=== PATIENT | female | born 1950 | race Caucasian/White ===

== ENCOUNTER 2023-09-07 06:13 | Inpatient (IN) | payer MEDICARE, BC ==
[2023-08-31 15:27] LABS: BASOPHILS # (AUTO) 0.1 X10'3 (0-0.2); BASOPHILS % (AUTO) 1.8 % (0-1); EOSINOPHILS # (AUTO) 0.1 X10'3 (0-0.9); EOSINOPHILS % (AUTO) 2.1 % (0-6); LYMPHOCYTES # (AUTO) 1.4 X10'3 (1.1-4.8); LYMPHOCYTES % (AUTO) 26.3 % (21-51); MEAN CORPUSCULAR HGB CONC 33.9 g/dL (33.0-36.5); MEAN CORPUSCULAR VOLUME 91.4 FL (78-98); MEAN PLATELET VOLUME 7.3 FL (7.4-10.4); MONOCYTES # (AUTO) 0.4 X10'3 (0-0.9); NEUTROPHILS # (AUTO) 3.2 X10'3 (1.8-7.7); NEUTROPHILS % (AUTO) 61.8 % (42-75); PRE OP HEMATOCRIT 38.3 % (35.0-45.0); PRE OP PLATELET COUNT 206 X10'3 (140-440); PRE OP WHITE BLOOD COUNT 5.2 10'3 (4.8-10.8); RED CELL DISTRIBUTION WIDTH 12.6 % (11.5-14.5)
[2023-08-31 15:39] LABS: ALBUMIN 3.5 G/DL (3.4-5.0); ALKALINE PHOSPHATASE 105 IU/L (46-116); BLOOD UREA NITROGEN 11 MG/DL (7-18); BUN/CREATININE RATIO 13.6 (10.0-20.0); CALCIUM 9.2 MG/DL (8.5-10.1); CHLORIDE 106 MMOL/L (99-107); CREATININE 0.81 MG/DL (0.40-0.90); PRE OP ALT 19 U/L (30-65); PRE OP ANION GAP 6 (8-16); PRE OP AST 20 U/L (10-37); PRE OP BILIRUB, TOTAL 0.9 MG/DL (0.0-1.0); PRE OP POTASSIUM 4.2 MMOL/L (3.4-5.1); PRE OP SODIUM 141 MMOL/L (135-145); TOTAL CARBON DIOXIDE 29.3 MMOL/L (24-32); eGFR 70 ML/MIN
[2023-08-31 15:46] LABS: PRE OP GLUCOSE 89 MG/DL (70-104)
[~2023-09-07] VITALS: Ht 162.6 cm; Wt 68.7 kg
[2023-09-07] VITALS (20 sets, daily range): BP systolic 97–160; BP diastolic 50–76; PULSE 50–77; RESP 13–17; TEMP 97.1–98.6; O2SAT 14–100
[~2023-09-07 06:13] MED LIST: CYAN50007 PO; FERR236T3 PO; GABA300C PO; GLUC1TAB21 PO; IBUP-1984 PO; LORA-269 PO; MAGN200T PO; MARIJUANA INH; MARIJUANA PO; NAPR-1115 PO; NIAC500C12 PO; PSYL0.4C7 PO; RED RICE YEAST PO; TUMERIC PO; [UNRECOGNIZED DRUG - OTHER] PO; [UNRECOGNIZED DRUG - OTHER] TOP; cefazolin 2gm/D5W 100mL 100 ML IV ONE; famotidine 20mg tablet PO ONE; ringers solution, lacted 1,000 ML IV SCH; tranexamic acid 650mg tablet PO ONE; vancomycin/NS 1 GM in NS 250 ML IV ONE
--- NOTE | 2023-09-07 07:30 | NUR ---
PT STATES SHE BATHED AND USED BACTROBAN OINTMENT F OR 5 DAYS PER TOTAL JOINT REPLACEMENT RECOMMENDATIONS. PT DENIES DECREASED SENSATION IN LEFT ARM. RADIAL PULSE PALPABLE, 2+. PT STATES SHE READ THE BOOKLET ON JOINT REPLACEMENT. Addendum: 09/07/23 at 1025 by Heidi Montoya RN Amended: Links added.
[2023-09-07] MEDS ORDERED: ROPIVAcaine 0.5% (5mg/ml) 30ml vial ONE ×2 (09:19→09:26)
[2023-09-07] MEDS ORDERED: dexamethasone sod phosphate 10mg/ml inj ONE (09:23)
[2023-09-07] MEDS ORDERED: desflurane 240ml liquid inh. IH ONE (09:23)
[2023-09-07] MEDS ORDERED: fentaNYL/PF 50MCG/1 ML 2ML syringe ONE (09:25)
[2023-09-07] MEDS ORDERED: midazolam 1 mg/ML 2ml injection ONE (09:26)
[2023-09-07] MEDS ORDERED: ondansetron/PF 4mg/2ml inj ONE (09:28)
[2023-09-07] MEDS ORDERED: LIDOcaine 2% (20mg/ml) 5ml vial ONE (09:28)
[2023-09-07] MEDS ORDERED: propofol inj 20 ML IV ONE (09:28)
[2023-09-07] MEDS ORDERED: acetaminophen 1,000mg/100ml IV 100 ML IV ONE (10:08)
[2023-09-07] MEDS ORDERED: ROPIVAcaine 0.5% (5mg/ml) 30ml vial IJ ONE (10:31)
[2023-09-07] MEDS ORDERED: hydrALAZINE 20mg/ml inj. IV PRN (10:40)
[2023-09-07] MEDS ORDERED: ROPIVAcaine 0.2% (10 MG/5 ML) BOLUS INJECTION INTERSCALE PRN (10:40)
[2023-09-07] MEDS ORDERED: ROPIVAcaine 0.2%/PF PUMP/bolus 545 ML INTERSCALE SCH (10:40)
[2023-09-07] MEDS ORDERED: ringers solution, lacted 1,000 ML IV SCH (10:40)
[2023-09-07] MEDS ORDERED: morphine 2 MG/ML inj. syringe IV PRN (10:40)
[2023-09-07] MEDS ORDERED: fentaNYL/PF 50MCG/1 ML 2ML syringe IV PRN ×2 (10:40)
[2023-09-07] MEDS ORDERED: ondansetron/PF 4mg/2ml inj IV PRN ×2 (10:40→11:50)
[2023-09-07] MEDS ORDERED: enalaprilat dihydrate 2.5mg/2ml vial IV PRN (10:40)
[2023-09-07] MEDS ORDERED: morphine 4 MG/ML inj SYRINge IV PRN (10:40)
--- NOTE | 2023-09-07 11:33 | NUR ---
Received from OR via HOSPITAL BED TO RR 7, accompanied by Anesthesiologist EMELIA and report given by Anesthesiologist. PT PRESENTS ON 6L VIA MASK, VSS. PT DOES NOT C/O PAIN OR NAUSEA. NO S/S OF DISTRESS NOTED. LR RUNNING THRU PIV. LEFT ARM IN SLING AND ICE PACK IS APPLIED. DECREASED SENSATION IN LEFT UPPER EXTREMITY BUT SHE IS ABLE TO MOVE ALL EXTREMITIES. Addendum: 09/07/23 at 1201 by Perlita Smith RN ON-Q READY
[2023-09-07] MEDS ORDERED: HYDROmorphone 1 mg/ml syringe IV PRN (11:50)
[2023-09-07] MEDS ORDERED: bisacodyl 10mg suppository rectal RC PRN (11:50)
[2023-09-07] MEDS ORDERED: acetaminophen 325mg tablet PO PRN (11:50)
[2023-09-07] MEDS ORDERED: magnesium hydroxide 30ml (MOM) UD suspension PO PRN (11:50)
[2023-09-07] MEDS ORDERED: oxyCODONE IR 5mg (immed. release) tablet PO PRN (11:50)
[2023-09-07] MEDS ORDERED: diphenhydrAMINE 25mg capsule PO PRN ×2 (11:50)
[2023-09-07] MEDS ORDERED: naloxone 0.4 mg/ml inj IV PRN (11:50)
[2023-09-07] MEDS ORDERED: HYDROmorphone inj. 0.5 MG/0.5 ML DISP.SYRIN IV PRN (11:50)
[2023-09-07] MEDS ORDERED: MARIJUANA PO PRN (11:50)
[2023-09-07] MEDS ORDERED: naproxen sodium 220mg tablet PO PRN (11:50)
[2023-09-07] MEDS ORDERED: HYDROcodone/acetaminophen 10/325mg tab PO PRN ×2 (11:50)
[2023-09-07] MEDS ORDERED: ibuprofen tablet 400 MG TABLET PO PRN (11:50)
[2023-09-07] MEDS ORDERED: [UNRECOGNIZED DRUG - OTHER] TOP PRN (11:50)
[2023-09-07] MEDS ORDERED: LORazepam 1 MG tablet PO PRN (11:50)
--- NOTE | 2023-09-07 12:50 | NUR ---
Received report from Zaira SANCHEZ, questions answered.
--- NOTE | 2023-09-07 13:03 | NUR ---
PATIENT STABLE FOR TRANSFER PER MD ORDER. REPORT CALLED TO ONCOMING NURSEGOPI. ALL QUESTIONS, COMMENTS, AND CONCERNS WERE ANSWERED AT THIS TIME. PT DENIES PAIN AT THIS TIME. NO S/S OF DISTRESS. LEFT SHOULDER DRESSING INTACT, ICE IN PLACE, SLING IN PLACE. ON-Q TRIGGER IN PATIENTS HAND. ALL PERSONAL BELONGINGS WERE SENT WITH PATIENT. PT IS NEUROLOGICALLY INTACT AND IS ABLE TO MOVE ALL EXTREMITIES, DECREASED SENSATION IN LEFT ARM. PATIENT HOOKED UP TO POST OP VITAL SIGNS, CALL LIGHT WITHIN REACH, BLL, 2 RAILS UP. PRIMARY NURSE IN ROOM DURING TRANSFER.
[2023-09-07] MEDS: acetaminophen 325mg tablet PO SCH ×2 (14:00→21:01)
[2023-09-07] MEDS: ceFAZolin/D5W- 1GM premix 50 ML IV SCH (16:39)
--- NOTE | 2023-09-07 17:59 | NUR ---
I have reviewed and agree with interventions, assessments, and documentation by Myrna Iverson LVN.
[2023-09-07] MEDS ORDERED: vancomycin/NS 1 GM ADD-VANTAGE 250 ML IV SCH (20:00)
--- NOTE | 2023-09-07 20:50 | NUR ---
surgical wound dressing documented sound say L shoulder, pt also has ON-q to L shoulder, still intact pt up to 4.
[2023-09-07] MEDS ORDERED: sennosides 8.6mg tablet PO SCH (21:00)
[2023-09-07] MEDS ORDERED: gabapentin 300mg capsule PO SCH (21:00)
[2023-09-07] MEDS: potassium cl 20mEq in 1/2 NS 1,000 ML IV SCH (21:10)
[2023-09-08] MEDS: ceFAZolin/D5W- 1GM premix 50 ML IV SCH (00:25)
[2023-09-08] MEDS: acetaminophen 325mg tablet PO SCH ×2 (01:59→08:02)
[2023-09-08 02:15] VITALS: BP 118/59; PULSE 67; RESP 16; TEMP 98.4; O2SAT 96
[2023-09-08 06:00] VITALS: BP 145/68; PULSE 64; RESP 14; TEMP 97.8
[2023-09-08 06:29] LABS: BASOPHILS % (AUTO) 0.5 % (0-1); EOSINOPHILS % (AUTO) 0.1 % (0-6); HEMATOCRIT 34.5 % (35.0-45.0); HEMOGLOBIN 11.3 g/dl (12.0-16.0); LYMPHOCYTES % (AUTO) 14.2 % (21-51); MEAN CORPUSCULAR HEMOGLOBIN 30.3 PG (27.0-31.0); MEAN CORPUSCULAR HGB CONC 32.9 g/dL (33.0-36.5); MEAN CORPUSCULAR VOLUME 92.1 FL (78-98); MEAN PLATELET VOLUME 7.9 FL (7.4-10.4); MONOCYTES # (AUTO) 0.9 X10'3 (0-0.9); MONOCYTES % (AUTO) 12.1 % (2-12); NEUTROPHILS # (AUTO) 5.2 X10'3 (1.8-7.7); NEUTROPHILS % (AUTO) 73.1 % (42-75); PLATELET COUNT 147 X10'3 (140-440); RED BLOOD COUNT 3.74 X10'6 (4.20-5.60); WHITE BLOOD COUNT 7.1 X10'3 (4.5-11.0)
[2023-09-08] MEDS: potassium cl 20mEq in 1/2 NS 1,000 ML IV SCH ×2 (06:58→08:56)
[2023-09-08 08:00] VITALS: RESP 14; O2SAT 97
[2023-09-08] MEDS ORDERED: GLUC SU PO SCH (08:00)
[2023-09-08] MEDS ORDERED: FERROUS GLUCONATE 65 MG PO SCH (08:00)
[2023-09-08] MEDS ORDERED: VIT C PO SCH (08:00)
[2023-09-08] MEDS ORDERED: [UNRECOGNIZED DRUG - OTHER] PO SCH (08:00)
[2023-09-08] MEDS ORDERED: niacin 500mg timed-release capsule PO SCH (08:00)
[2023-09-08] MEDS ORDERED: RED RICE YEAST PO SCH (08:00)
[2023-09-08] MEDS ORDERED: CHONDRO SU A PO SCH (08:00)
[2023-09-08] MEDS ORDERED: MAGNESIUM PO SCH (08:00)
[2023-09-08] MEDS ORDERED: TURMERIC PO SCH (08:00)
[2023-09-08] MEDS ORDERED: [UNRECOGNIZED DRUG - OTHER] PO SCH (08:00)
[2023-09-08] MEDS ORDERED: cyanocobalamin 500mcg tablet PO SCH (08:00)
[2023-09-08] MEDS ORDERED: aspirin 325mg tablet PO SCH (08:30)
[2023-09-08 09:13] LABS: ANION GAP 8 (8-16); CHLORIDE 104 MMOL/L (99-107); POTASSIUM 3.9 MMOL/L (3.5-5.1); SODIUM 139 MMOL/L (135-145); TOTAL CARBON DIOXIDE 27.3 MMOL/L (24-32)
--- NOTE | 2023-09-08 10:29 | NUR ---
Joint surgery consult: Pt s/p L shoulder surgery this admit per EMR. Pt seen by KATYA for written/verbal high protein diet ed w/ RD contact information provided. KATYA encouraged pt to contact dietitian's office if further nutrition questions/concerns. Addendum: 09/08/23 at [address] Amended: Links added.
--- NOTE | 2023-09-08 11:28 | NUR ---
Patient discharged home with friend with all her personal belongings via POV. PIV was discontinued prior to discharge, tip intact, tolerated well. Patient alert and appropriate at the time of discharge.
--- NOTE | 2023-09-08 11:53 | NUR ---
I agree with charting of Elvia STROUD
[2023-09-09] MEDS ORDERED: acetaminophen 325mg tablet PO PRN (11:50)
== END 2023-09-08 11:28 | disposition home or self-care (01) | DRG 483 ==
LOC: PAS IN 06:13 → ORTHO 4S 13:00
PROVIDERS: ADMIT Orthopaedic Surgery; ATTEND Orthopaedic Surgery
PROC: 0LS40ZZ Reposition Left Upper Arm Tendon, Open Approach (ICD-10-PCS; 2023-09-07)
PROC: 3E0T3BZ Introduction of Anesthetic Agent into Peripheral Nerves and Plexi, Percutaneous Approach (ICD-10-PCS; 2023-09-07)
PROC: 3E0T33Z Introduction of Anti-inflammatory into Peripheral Nerves and Plexi, Percutaneous Approach (ICD-10-PCS; 2023-09-07)
PROC: 0RRK00Z Replacement of Left Shoulder Joint with Reverse Ball and Socket Synthetic Substitute, Open Approach (ICD-10-PCS; principal; 2023-09-07 09:23)
DX: M75.102 Unspecified rotator cuff tear or rupture of left shoulder, not specified as traumatic (principal); M19.012 Primary osteoarthritis, left shoulder; M65.812 Other synovitis and tenosynovitis, left shoulder; Z79.899 Other long term (current) drug therapy
CPT/HCPCS: 36415; 80051; 80053; 82948; 85025; 87081; 97110; 97161; 97530; A4565; A4615; A4618; A7000; C1776; G0378; J0131; J0690; J1100; J2250; J2405; J2704; J2795; J3010; J3370; J3480; J3490; J7120

== ENCOUNTER → 2024-04-21 | Outpatient (CLI) | payer MEDICARE, BC ==
[~2024-04-21] MED LIST changes: -cefazolin 2gm/D5W 100mL 100 ML IV ONE; -famotidine 20mg tablet PO ONE; -ringers solution, lacted 1,000 ML IV SCH; -tranexamic acid 650mg tablet PO ONE; -vancomycin/NS 1 GM in NS 250 ML IV ONE
== END | disposition home or self-care (01) ==
LOC: RAD 14:40
PROVIDERS: ATTEND Orthopaedic Surgery
DX: M19.011 Primary osteoarthritis, right shoulder (principal); M25.512 Pain in left shoulder; M25.411 Effusion, right shoulder; Z96.612 Presence of left artificial shoulder joint; M75.122 Complete rotator cuff tear or rupture of left shoulder, not specified as traumatic; M75.121 Complete rotator cuff tear or rupture of right shoulder, not specified as traumatic
CPT/HCPCS: 73200

== ENCOUNTER 2024-09-26 07:56 | Inpatient (IN) | payer MEDICARE, BC ==
[2024-09-20 15:42] LABS: BASOPHILS # (AUTO) 0.1 X10'3 (0-0.2); BASOPHILS % (AUTO) 1.3 % (0-1); EOSINOPHILS # (AUTO) 0.1 X10'3 (0-0.9); LYMPHOCYTES # (AUTO) 1.5 X10'3 (1.1-4.8); LYMPHOCYTES % (AUTO) 26.7 % (21-51); MEAN CORPUSCULAR HEMOGLOBIN 30.2 PG (27.0-31.0); MEAN CORPUSCULAR HGB CONC 33.3 g/dL (33.0-36.5); MEAN CORPUSCULAR VOLUME 90.8 FL (78-98); MEAN PLATELET VOLUME 7.2 FL (7.4-10.4); MONOCYTES # (AUTO) 0.4 X10'3 (0-0.9); MONOCYTES % (AUTO) 7.9 % (2-12); NEUTROPHILS # (AUTO) 3.4 X10'3 (1.8-7.7); NEUTROPHILS % (AUTO) 62.1 % (42-75); PRE OP HEMATOCRIT 38.2 % (35.0-45.0); PRE OP HEMOGLOBIN 12.7 g/dL (12.0-16.0); PRE OP PLATELET COUNT 236 X10'3 (140-440); PRE OP WHITE BLOOD COUNT 5.5 10'3 (4.8-10.8); RED BLOOD COUNT 4.21 X10'6 (4.20-5.60); RED CELL DISTRIBUTION WIDTH 13.3 % (11.5-14.5)
[2024-09-20 15:51] LABS: ALBUMIN 3.5 G/DL (3.4-5.0); ALBUMIN/GLOBULIN RATIO 0.9 (1.1-1.5); ALKALINE PHOSPHATASE 94 IU/L (46-116); BLOOD UREA NITROGEN 14 MG/DL (7-18); BUN/CREATININE RATIO 15.9 (10.0-20.0); CALCIUM 8.9 MG/DL (8.5-10.1); CHLORIDE 108 MMOL/L (99-107); CREATININE 0.88 MG/DL (0.40-0.90); PRE OP ALT 19 U/L (30-65); PRE OP ANION GAP 6 (8-16); PRE OP AST 14 U/L (10-37); PRE OP BILIRUB, TOTAL 0.7 MG/DL (0.0-1.0); PRE OP GLUCOSE 86 MG/DL (70-104); PRE OP POTASSIUM 4.2 MMOL/L (3.4-5.1); PRE OP SODIUM 144 MMOL/L (135-145); TOTAL PROTEIN 7.4 G/DL (6.4-8.2); eGFR 63 ML/MIN
[~2024-09-26] VITALS: Ht 162.6 cm; Wt 61.0 kg
[2024-09-26] VITALS (27 sets, daily range): BP systolic 84–138; BP diastolic 40–98; PULSE 48–70; RESP 12–24; TEMP 96.9–98.2; O2SAT 90–98
[2024-09-26] MEDS: ringers solution, lacted 1,000 ML IV SCH ×2 (05:30→17:03)
[2024-09-26] MEDS: ceFAZolin 2gm in dextrose, iso 50 ML IV ONE (05:30)
[2024-09-26] MEDS: VANCOMYCIN 1GM 200ML H20 (PEG) 200 ML IV ONE (05:30)
[~2024-09-26 07:56] MED LIST changes: +ACET-1025 PO; +FERR-119 PO; -FERR236T3 PO; +LORA-268 PO; -LORA-269 PO
[2024-09-26] MEDS: famotidine 20mg tablet PO ONE (08:59)
[2024-09-26] MEDS: tranexamic acid 650mg tablet PO ONE (09:00)
[2024-09-26] MEDS ORDERED: ROPIVAcaine 0.5% (5mg/ml) 30ml vial ONE ×2 (10:11→11:37)
[2024-09-26] MEDS ORDERED: ketorolac trometh 30MG/ML vial 30 MG/ML VIAL ONE (10:11)
[2024-09-26] MEDS ORDERED: midazolam 1 mg/ML 2ml injection ONE (11:35)
[2024-09-26] MEDS ORDERED: fentaNYL/PF 50MCG/1 ML 2ML syringe ONE (11:35)
[2024-09-26] MEDS ORDERED: LIDOcaine 2% (20mg/ml) 5ml vial ONE (11:36)
[2024-09-26] MEDS ORDERED: propofol inj 20 ML IV ONE (11:36)
[2024-09-26] MEDS ORDERED: dexamethasone sod phosphate 4mg/ml inj. ONE (11:37)
[2024-09-26] MEDS ORDERED: ondansetron/PF 4mg/2ml inj ONE (11:37)
[2024-09-26] MEDS ORDERED: acetaminophen 1,000mg/100ml IV 100 ML IV ONE (11:37)
[2024-09-26] MEDS ORDERED: sevoflurane 250ml liquid IH ONE (11:42)
[2024-09-26] MEDS ORDERED: morphine 4 MG/ML inj SYRINge IV PRN (13:00)
[2024-09-26] MEDS ORDERED: enalaprilat dihydrate 2.5mg/2ml vial IV PRN (13:00)
[2024-09-26] MEDS ORDERED: ondansetron/PF 4mg/2ml inj IV PRN ×2 (13:00→14:00)
[2024-09-26] MEDS ORDERED: hydrALAZINE 20mg/ml inj. IV PRN (13:00)
[2024-09-26] MEDS ORDERED: morphine 2 MG/ML inj. syringe IV PRN (13:00)
[2024-09-26] MEDS ORDERED: fentaNYL/PF 50MCG/1 ML 2ML syringe IV PRN ×2 (13:00)
[2024-09-26] MEDS ORDERED: bisacodyl 10mg suppository rectal RC PRN (14:00)
[2024-09-26] MEDS ORDERED: HYDROmorphone 1 mg/ml syringe IV PRN (14:00)
[2024-09-26] MEDS ORDERED: LORazepam 0.5 MG tablet PO PRN (14:00)
[2024-09-26] MEDS ORDERED: diphenhydrAMINE 25mg capsule PO PRN ×2 (14:00)
[2024-09-26] MEDS ORDERED: ibuprofen tablet 400 MG TABLET PO PRN (14:00)
[2024-09-26] MEDS ORDERED: oxyCODONE IR 5mg (immed. release) tablet PO PRN ×2 (14:00)
[2024-09-26] MEDS ORDERED: magnesium hydroxide 30ml (MOM) UD suspension PO PRN (14:00)
[2024-09-26] MEDS ORDERED: naproxen sodium 220mg tablet PO PRN (14:00)
[2024-09-26] MEDS ORDERED: HYDROmorphone inj. 0.5 MG/0.5 ML DISP.SYRIN IV PRN (14:00)
[2024-09-26] MEDS ORDERED: [UNRECOGNIZED DRUG - OTHER] TOP PRN (14:00)
[2024-09-26] MEDS ORDERED: acetaminophen 325mg tablet PO PRN (14:00)
[2024-09-26] MEDS: ROPIVAcaine 0.2%/PF PUMP/bolus 545 ML INTERSCALE SCH (14:14)
[2024-09-26] MEDS: ROPIVAcaine 0.2% (10 MG/5 ML) BOLUS INJECTION INTERSCALE PRN (14:15)
[2024-09-26] MEDS: acetaminophen 325mg tablet PO SCH (17:04)
[2024-09-26] MEDS: ceFAZolin/D5W- 1GM premix 50 ML IV SCH (17:11)
[2024-09-26] MEDS: potassium cl 20mEq in 1/2 NS 1,000 ML IV SCH (18:02)
[2024-09-26] MEDS: VANCOMYCIN 1GM 200ML H20 (PEG) 200 ML IV SCH (19:58)
[2024-09-26] MEDS: gabapentin 300mg capsule PO SCH (19:59)
[2024-09-26] MEDS: sennosides 8.6mg tablet PO SCH (19:59)
[2024-09-27 01:59] VITALS: BP 109/52; PULSE 53; RESP 14; TEMP 97.1; O2SAT 95
[2024-09-27 06:00] VITALS: BP 101/49; PULSE 54; RESP 14; TEMP 96.9; O2SAT 96
[2024-09-27 06:47] LABS: BASOPHILS % (AUTO) 0.3 % (0-1); EOSINOPHILS % (AUTO) 0 % (0-6); HEMATOCRIT 29.7 % (35.0-45.0); HEMOGLOBIN 9.9 g/dl (12.0-16.0); LYMPHOCYTES # (AUTO) 0.8 X10'3 (1.1-4.8); MEAN CORPUSCULAR HEMOGLOBIN 30.3 PG (27.0-31.0); MEAN CORPUSCULAR HGB CONC 33.5 g/dL (33.0-36.5); MEAN CORPUSCULAR VOLUME 90.5 FL (78-98); MEAN PLATELET VOLUME 7.7 FL (7.4-10.4); MONOCYTES # (AUTO) 0.6 X10'3 (0-0.9); MONOCYTES % (AUTO) 7.3 % (2-12); NEUTROPHILS # (AUTO) 7.2 X10'3 (1.8-7.7); NEUTROPHILS % (AUTO) 83.4 % (42-75); PLATELET COUNT 164 X10'3 (140-440); RED BLOOD COUNT 3.28 X10'6 (4.20-5.60); RED CELL DISTRIBUTION WIDTH 12.9 % (11.5-14.5); WHITE BLOOD COUNT 8.7 X10'3 (4.5-11.0)
[2024-09-27 06:53] LABS: ANION GAP 6 (8-16); CHLORIDE 107 MMOL/L (99-107); POTASSIUM 4.4 MMOL/L (3.5-5.1); SODIUM 138 MMOL/L (135-145); TOTAL CARBON DIOXIDE 25.2 MMOL/L (24-32)
[2024-09-27] MEDS: magnesium oxide 400mg tablet PO SCH (07:52)
[2024-09-27] MEDS: ferrous sulfate 325mg tablet PO SCH (07:52)
[2024-09-27] MEDS: aspirin 325mg tablet PO SCH (07:53)
[2024-09-27] MEDS: cyanocobalamin 500mcg tablet PO SCH (07:53)
[2024-09-27] MEDS ORDERED: [UNRECOGNIZED DRUG - REMARK] PO SCH (08:00)
[2024-09-27] MEDS ORDERED: celeCOXIB 100mg capsule PO SCH ×2 (08:00→20:00)
[2024-09-28] MEDS ORDERED: acetaminophen 325mg tablet PO PRN (13:15)
== END 2024-09-27 09:15 | disposition home or self-care (01) | DRG 483 ==
LOC: PAS IN 07:56 → ORTHO 4S 17:48
PROVIDERS: ADMIT Orthopaedic Surgery; ATTEND Orthopaedic Surgery
PROC: 0LS30ZZ Reposition Right Upper Arm Tendon, Open Approach (ICD-10-PCS; 2024-09-26)
PROC: 3E0T3BZ Introduction of Anesthetic Agent into Peripheral Nerves and Plexi, Percutaneous Approach (ICD-10-PCS; 2024-09-26)
PROC: 3E0T33Z Introduction of Anti-inflammatory into Peripheral Nerves and Plexi, Percutaneous Approach (ICD-10-PCS; 2024-09-26)
PROC: 0RRJ00Z Replacement of Right Shoulder Joint with Reverse Ball and Socket Synthetic Substitute, Open Approach (ICD-10-PCS; principal; 2024-09-26 11:42)
DX: M19.011 Primary osteoarthritis, right shoulder (principal); M75.121 Complete rotator cuff tear or rupture of right shoulder, not specified as traumatic; M65.811 Other synovitis and tenosynovitis, right shoulder; M48.02 Spinal stenosis, cervical region; Z79.899 Other long term (current) drug therapy; Z88.0 Allergy status to penicillin
CPT/HCPCS: 36415; 80051; 80053; 82948; 85025; 87081; 93005; 97161; 97530; A4615; A4618; A7000; C1776; G0378; J0131; J0690; J1100; J1885; J2003; J2250; J2371; J2405; J2704; J2795; J3010; J3372; J3480; J3490; J7120